=== PATIENT | female | born 1955 | race Caucasian/White ===

== ENCOUNTER 2017-08-15 13:59 | Inpatient (IN) | payer BC, OTHER ==
[~2017-08-15] VITALS: Ht 162.6 cm; Wt 113.4 kg
[2017-08-15 15:19] LABS: *AMPHETAMINE, URINE NEGATIVE (NEGATIVE); *BARBITURATE, URINE POSITIVE (NEGATIVE); *CANNABINOID, URINE NEGATIVE (NEGATIVE); *COCCAINE, URINE NEGATIVE (NEGATIVE); *OPIATE, URINE NEGATIVE (NEGATIVE); *PHENCYCLIDINE SCREEN,URINE NEGATIVE (NEGATIVE)
--- NOTE | 2017-08-15 15:30 | NUR ---
INTAKE ASSESSMENT RECEIVED PT AOX4, STABLE, AND AMBULATORY. PT REPORTS ALLERGIES TO IODINE DYE, ORENCIA, ENBREL, PLAQUENIL, AND LEVAQUIN. VITAL SIGNS STABLE. PT REPORTS NO SEIZURE HISTORY. EXPLAINED MED HANDLING AND DISPOSAL OF NARCOTICS. EXPLAINED UNIT PROTOCOLS AND PT VERBALIZED UNDERSTANDING. WILL ADMIT PT UPON ARRIVAL TO 3RD FLOOR.
[2017-08-15 15:35] VITALS: BP 139/85
[2017-08-15] MEDS ORDERED: METF-495 PO (15:52)
[2017-08-15] MEDS ORDERED: GLIM2TAB2 PO (15:52)
[2017-08-15] MEDS ORDERED: ASPI-612 PO (15:52)
[2017-08-15] MEDS ORDERED: BUPR1FIL3 SL (15:52)
[2017-08-15] MEDS ORDERED: LOPE2CAP PO (15:52)
[2017-08-15] MEDS ORDERED: DULO60CA45 PO (15:52)
[2017-08-15] MEDS ORDERED: HYDR50TA3 PO (15:52)
[2017-08-15] MEDS ORDERED: ATEN50TA PO (15:52)
[2017-08-15] MEDS ORDERED: CYCL5TAB PO (15:52)
[2017-08-15] MEDS ORDERED: MELO-105 PO (15:52)
[2017-08-15] MEDS ORDERED: ESOM20CA PO (15:52)
[2017-08-15] MEDS ORDERED: NEOM15OI3 TP (15:52)
[2017-08-15] MEDS ORDERED: INSU100V7 SQ (15:52)
[2017-08-15] MEDS ORDERED: lidocaine patch TOP (15:52)
[2017-08-15 16:00] VITALS: BP 139/72
--- NOTE | 2017-08-15 16:22 | NUR ---
ADMISSION NOTE VS BP 139/85 HR 83 O2 96% RR 16 TEMP 98.2 HEIGHT 64 INCHES WEIGHT 250 LBS ALLERGIES: IODINE CONTRAST,LEVAQUIN, ENBREL, PLAQUENIL, ORENCIA PATIENT IS A 62 YEAR OLD FEMALE ADMITTED TO [facility] ON 08/15/17 AT 1545. PT IS UNDER THE CARE OF DR AQUINO OF SUBOXONE DEPENDENCE. PT DENIES SUICIDAL OR HOMICIDAL IDEATIONS AT THIS TIME. PT DENIES BEING HOSPITALIZED WITHIN THE LAST 30 DAYS. PT DENIES CHEST PAIN OR SOB. UPON ASSESSMENT, SKIN IS INTACT. COWS 9 UPON ASSESSMENT. AOX4 AND ABLE TO ANSWER NECESSARY QUESTIONS FOR ADMISSION PROCESS. PT IS FULL CODE AND REGULAR DIET. PT DENIES SEIZURE HISTORY. PT DENIES HAVING PCP. BREATHING IS EVEN AND UNLABORED. PT AMBULATES WITH STEADY GAIT. PT STATES BOWEL HABITS ARE NORMAL. PT REPORTS TREATMENT HISTORY 8 YEARS AGO FOR OXYCONTIN AND THAT IS WHEN SHE WAS STARTED ON SUBOXONE. PT REPORTS LIVING ALONE. PT DOES NOT SMOKE CIGARETTES. DR AQUINO HAS BEEN NOTIFIED AND PLACED CLIENT UNDER OBSERVATION. ALL NEEDS MET. ALL SAFETY MEASURES IN PLACE PER HOSPITAL POLICY. PT HAS BEEN ORIENTED TO ROOM, STAFF, AND UNIT. BED IN LOWEST POSITION AND LOCKED. WILL MONITOR CLOSELY AND OFFER HELP. SUBSTANCE ABUSE SUBOXONE 20 MG DAILY FOR 1 WEEK AT THIS RATE, 8 YEARS TOTAL. LAST USED 4 MG ON 08-15-17 PATIENT REPORTS TAKING FIORICET FOR FACIAL PAIN 5 DAYS AGO PRESCRIBED.
--- NOTE | 2017-08-15 18:38 | NUR ---
END OF SHIFT NOTE ADMITTED PATIENT THIS AFTERNOON. PATIENT ADMITTED FOR SUBOXONE DEPENDENCE. VITAL SIGNS STABLE. PATIENT GIVEN 4 MG SUBUTEX ORDERED. LAST COWS 9. PATIENT BEEN RESTING IN ROOM SINCE ADMISSION. ALL NEEDS MET. SAFETY MEASURES IN PLACE. PT DENIES S/I AND H/I. WILL ENDORSE TO NIGHT NURSE.
[2017-08-15 19:23] LABS: BASOPHILS # (AUTO) 0.1 K/uL (0.0-8.0); BASOPHILS % (AUTO) 0.6 % (0.0-2.0); EOSINOPHILS # (AUTO) 0.2 K/uL (0.0-0.7); EOSINOPHILS % (AUTO) 1.6 % (0.0-7.0); HEMATOCRIT 35.6 % (37-47); HEMOGLOBIN 11.5 G/DL (12.0-16.0); LYMPHOCYTES # (AUTO) 2.7 K/UL (0.8-4.8); LYMPHOCYTES % (AUTO) 27.5 % (20.5-51.5); MEAN CORPUSCULAR HEMOGLOBIN 23.3 UUG (27.0-31.0); MEAN CORPUSCULAR HGB CONC 32 g/dL (32.0-37.0); MEAN CORPUSCULAR VOLUME 72.1 FL (81.0-99.0); MONOCYTES # (AUTO) 0.5 K/UL (0.1-1.30); MONOCYTES % (AUTO) 5.4 % (0.0-11.0); NEUTROPHILS # (AUTO) 6.3 K/UL (1.8-8.9); NEUTROPHILS % (AUTO) 64.9 % (38.5-71.5); PLATELET COUNT (AUTO) 360 K/UL (150-450); RED BLOOD CELL COUNT(AUTO) 4.94 MIL/UL (4.2-5.4); WHITE BLOOD COUNT (AUTO) 9.8 K/UL (4.0-11.2)
[2017-08-15 19:34] LABS: ALANINE AMINOTRANSFERASE 18 U/L (14-59); ALKALINE PHOSPHATASE 71 U/L (50-136); ASPARTATE AMINOTRANSFERASE 11 U/L (15-37); BILIRUBIN,TOTAL 0.2 mg/dL (0.2-1.0); CARBON DIOXIDE 32 mmol/L (21-32); CHLORIDE 101 mmol/L (98-107); CREATININE 0.8 mg/dL (0.6-1.3); GLUCOSE 249 mg/dL (74-106); POTASSIUM 3.9 mmol/L (3.5-5.1); UREA NITROGEN, BLOOD 10 mg/dL (7-18)
[2017-08-15 19:35] LABS: MAGNESIUM 1.2 mg/dL (1.8-2.4)
[2017-08-15 19:43] LABS: ETHANOL < 3 MG/DL (0-0)
[2017-08-15 20:00] VITALS: BP 141/52
--- NOTE | 2017-08-15 20:00 | NUR ---
Start of Shift Pt is a 62 year old female admitted for Suboxone dependence, placed on 4 day Subutex taper. Pt reported using Suboxone 20mg/daily. Pt reports allergies to iodine contrast, Levaquin, Enbrel, laquenil and Orencia, fall precautions and full code. PMH: anxiety, depression, DM II, RA, Fibromyalgia, HTN, Sciatica and trigeminal neuralgia. Upon assessment, pt presents with body aches, hot/cold flushing throughout body, body/muscle aches, nasal stuffiness noted, abdominal cramping, respirations even/unlabored, denies SOB/chest pain, medications due. Pt uses own Cpap machine, VTE 2 SCD pumps in use. Safety measures in place, call light within reach, side rails up x2, bed locked and in low position. Will continue to monitor.
--- NOTE | 2017-08-15 20:10 | NUR ---
Accu-Check Blood Sugar 254, Humulin R 6 units administered per sliding scale orders. No s/s of hypo/hyperglycemia, education provided regarding proper diet, safety measures in place, will continue to monitor.
[2017-08-16] VITALS: BP 106/52
--- NOTE | 2017-08-16 | NUR ---
PRN Administration Pt reports pain and aches 5/10 in left shoulder area. Motrin 600mg PRN and Robaxin 750mg PRN administered. Safety measures in place. Will continue to monitor Addendum: 08/16/17 at 0510 by BEST SNOW RN CORRECTION: Pt reports pain and aches 5/10 in RIGHT shoulder area.
--- NOTE | 2017-08-16 01:00 | NUR ---
PRN Reassessment Upon reassessment, pt is sleeping, respirations even/unlabored. Safety measures in place, will continue to monitor
[2017-08-16 04:00] VITALS: BP 140/64
--- NOTE | 2017-08-16 04:00 | NUR ---
Vital Signs BP 140/64, pulse 79, resp 16, SpO2 96% room air, temp 97.8 COWS deferred d/t pt sleeping, to assess while pt is awake as ordered. Safety measures in place, Will continue to monitor
--- NOTE | 2017-08-16 07:03 | NUR ---
End of Shift Pt is a 62 year old female admitted for Suboxone dependence, placed on 4 day Subutex taper. Pt reported using Suboxone 20mg/daily. Pt reports allergies to iodine contrast, Levaquin, Enbrel, laquenil and Orencia, fall precautions and full code. PMH: anxiety, depression, DM II, RA, Fibromyalgia, HTN, Sciatica and trigeminal neuralgia. During shift, pt presented with body aches, hot/cold flushing throughout body, body/muscle aches, nasal stuffiness noted, abdominal cramping scheduled taper medications administered Latest COWS 9. At 1999, Blood Sugar 254, Humulin R 6 units administered per sliding scale orders. No s/s of hypo/hyperglycemia, education provided regarding proper diet. Motrin 600mg PRN and Robaxin 750mg PRN administered for pain and muscle aches in right shoulder area. Pt uses own Cpap machine, VTE 2 SCD pump in use. Pt slept for 8 hours, intake of 1035ml PO, voids x2 and stool x0. Safety measures in place, call light within reach, side rails up x2, bed locked and in low position. Endorsed to day shift nurse.
[2017-08-16 08:02] VITALS: BP 118/68
[2017-08-16 08:32] LABS: BILIRUBIN,TOTAL 0.3 mg/dL (0.2-1.0); CREATININE 0.8 mg/dL (0.6-1.3); MAGNESIUM 1.6 mg/dL (1.8-2.4)
--- NOTE | 2017-08-16 08:57 | NUR ---
START OF SHIFT NOTE RECEIVED PT THIS AM AOX4. PT AWAKE IN BED AND REPORTS NOT FEELING WELL. SHE WAS GIVEN PRN MOTRIN AND ROBAXIN DURING SWORD SWALLOWER. PT IS ON 4 DAY SUBUTEX TAPER.PT REFUSED TB TEST THIS MORNING AND NOTIFIED MD. ENCOURAGED PT TO NOTIFY RN IF S/S OF W/D WORSEN. ENCOURAGED PT TO INCREASE FLUID INTAKE. WILL MONITOR.
--- NOTE | 2017-08-16 09:00 | NUR ---
pt refused TB test. notified
[2017-08-16 11:54] LABS: *BILIRUBIN,URIN NEGATIVE (NEGATIVE); *BLOOD, URINE NEGATIVE (NEGATIVE); *CLARITY,URINE SLIGHTLY CLOUDY (CLEAR); *COLOR,URINE YELLOW (YELLOW); *KETONES,URINE NEGATIVE (NEGATIVE); *PROTEIN,URINE NEGATIVE (NEGATIVE); *UROBILINOGEN,URINE 0.2 E.U./dl (NORMAL); LEUKOCYTE ESTERASE ,URINE 1+ (NEGATIVE); NITRITE, URINE NEGATIVE (NEGATIVE); PH,URINE 5.5 (5.0-8.0); UGLUCOSE NEGATIVE (NEGATIVE)
[2017-08-16 12:00] VITALS: BP 149/56
[2017-08-16 12:12] LABS: BACTERIA,URINE MODERATE /HPF (NONE SEEN); RBC,URINE 0-3 /HPF (0-3); WBC,URINE 50-80 /HPF (0-3)
[2017-08-16 12:13] LABS: MUCUS,URINE FEW /LPF (0-FEW); SQUAMOUS EPITHELIAL CELL,UR MANY /HPF (NONE SEEN)
--- NOTE | 2017-08-16 14:15 | NUR ---
PRN MEDICATION PATIENT GIVEN IMODIUM FOR FIRST BOUT OF DIARRHEA. WILL ASSESS EFFECTIVENESS.
[2017-08-16 16:00] VITALS: BP 141/66
--- NOTE | 2017-08-16 16:15 | NUR ---
PRN REASSESSMENT PT SLEEPING SOUNDLY IN BED WITH RR EVEN AND UNLABORED. CALL GONZALEZ WITHIN REACH. BED LOCKED AND IN LOWEST POSITION. WILL MONITOR.
--- NOTE | 2017-08-16 18:32 | NUR ---
END OF SHIFT NOTE PT CONTINUED ON 4 DAY SUBUTEX TAPER AND TOLERATING WELL. PRN IMODIUM GIVEN FOR C/O DIARRHEA DURING SHIFT WITH EFFECTIVENESS. PT CONTINUED WITH ACCUCHEK AC HS DURING SHIFT AND COVERED WITH HUMULIN NEEDED. LAST BLOOD SUGAR WAS 222 AND COVERED WITH 6 UNITS. LAST COWS 9. VITAL SIGNS STABLE. ALL NEEDS MET. ALL SAFETY MEASURES IN PLACE. WILL ENDORSE TO NIGHT NURSE.
[2017-08-16 20:00] VITALS: BP 157/71
--- NOTE | 2017-08-16 20:00 | NUR ---
START OF SHIFT Pt is a 62 y/o female admitted on 08/15/17 for opiate dependence. Pt was dependent on Suboxone 20 mg/daily for 8 yrs. Pt is full code, regular diet, fall precautions, allergic to IV dye, abatacept, etanercept, hydroxychloroquine, levofloxacin. Pt reports PMH of type 2 diabetes, RA, fibromyalgia, HTN, sciatica, trigeminal neuralgia, anxiety, and depression. Pt is on a 4 day Subutex taper that started on 08/15/17, tolerating well. Upon assessment, pt is laying in bed complaining of mild generalized aches, discomforts r/t sciatica and fibromyalgia. Complains of pain in left shoulder and left hip. Pt also reports mild stomach cramps and anxiety. Pt has resolved diarrhea as of today after PRN Imodium given during day shift. Respirations 16, even and unlabored. Denies N/V/D. Denies chest pain or SOB. Medications due. Safety measures in place. Call light within reach. Will continue to monitor. Addendum: 08/16/17 at 2236 by MAGUE SERRANO RN Pt uses own Cpap machine, VTE 2 SCD pumps in use.
--- NOTE | 2017-08-16 20:20 | NUR ---
Accu-Check Blood Sugar 156, Humulin R 2 units administered per sliding scale orders. No s/s of hypo/hyperglycemia, education provided regarding proper diet, safety measures in place, will continue to monitor.
--- NOTE | 2017-08-16 20:24 | NUR ---
PRN CLONIDINE Pt given PRN Clonidine for BP 157/71 and for w/d S/S such as mild sweats, mild aches, and anxiety. COWS 5. Respirations 16, even and unlabored. Safety measures in place. Call light within reach. Will continue to monitor.
--- NOTE | 2017-08-16 21:24 | NUR ---
PRN CLONIDINE REASSESSMENT BP went from 157/71 to 125/61. COWS was 5 and lowered to a 3. Pt reports improvement in S/S of withdrawal. Safety measures in place. Call light within reach. Will continue to monitor.
--- NOTE | 2017-08-16 21:44 | NUR ---
ROSANNA LORENZO Pt reports heartburn. Respirations are 16, even and unlabored. Safety measures in place. Call light within reach. Will continue to monitor.
--- NOTE | 2017-08-16 22:21 | NUR ---
PRN ROBAXIN PRN Robaxin given for generalized mild aches. Respirations 16, even and unlabored. Safety measures in place. Call light within reach. Will continue to monitor.
--- NOTE | 2017-08-16 22:44 | NUR ---
PRN MAALOX REASSESSMENT Pt reports improvement of heartburn symptoms. Safety measures in place. Call light within reach. Will continue to monitor.
--- NOTE | 2017-08-16 23:21 | NUR ---
ROSANNA LAMB REASSESSMENT Pt reports improvement in generalized body aches. Safety measures in place. Call light within reach. Will continue to monitor.
--- NOTE | 2017-08-16 23:54 | NUR ---
PRN Motrin Pt reports headache rated 5-6/10. Motrin 600mg PRN administered. Safety measures in place, will continue to monitor
[2017-08-17] VITALS: BP 138/62
--- NOTE | 2017-08-17 00:54 | NUR ---
PRN Motrin Reassessment Upon reassessment, pt is in bed, sleeping, respirations even/unlabored, no reports of discomfort. Safety measures in place, will continue to monitor,
[2017-08-17 04:00] VITALS: BP 137/60
--- NOTE | 2017-08-17 04:00 | NUR ---
VITAL SIGNS BP 137/60, P 73, R 16, 02 98%, T 98.1, PA 0 COW deferred. Pt is sleeping, to be assessed while pt is awake as ordered. Safety measures in place. Will continue to monitor.
--- NOTE | 2017-08-17 07:12 | NUR ---
END OF SHIFT Pt is a 62 y/o female admitted on 08/15/17 for opiate dependence. Pt was dependent on Suboxone 20 mg/daily for 8 yrs. Pt is full code, regular diet, fall precautions, allergic to IV dye, abatacept, etanercept, hydroxychloroquine, levofloxacin. Pt reports PMH of type 2 diabetes, RA, fibromyalgia, HTN, sciatica, trigeminal neuralgia, anxiety, and depression. Pt uses own Cpap machine, VTE 2 SCD pumps in use. Pt is on a 4 day Subutex taper that started on 08/15/17, tolerating well. Pt complained of mild generalized aches and mild shoulder and hip pains. Scheduled medications and PRN clonidine, maalox, robaxin, and motrin administered during shift, effective in management of S/S of withdrawal as verbalized by pt. Last COW 5 at 0000. BS 156, covered with Humulin R 2 units per sliding scale orders. No S/S of hypo/hyperglycemia noted. Pt slept 6 hours. Intake 902 ml, void x 3, stool x 0. Safety measures in place. Call light within reach. Pt needs have been met. Endorsed to day shift nurse.
--- NOTE | 2017-08-17 07:13 | NUR ---
Start of Shift Notes: Received patient in her room. Awake, alert and oriented x 4. Verbally responsive. Able to make her needs known. Respirations even and unlabored. No SOB noted. Skin warm and dry to touch. Abdomen soft and non-distended with (+) BS in all 4 quadrants. No complains of V/D or constipation noted. However, complains of nausea. Patient states "I feel nauseated." Bladder non-distended. No complains of dysuria noted. Voids independently. Ambulatory ad luis felipe with steady gait. Patient is a 62 year old female admitted for opiate dependence who was placed on a 4-day Subutex taper as ordered. Prior to admission, patient was using 20 mg of Subutex SL daily x 8 years. Has past medical hx of anxiety, depression, type 2 diabetes, RA, fibromyalgia, HTN, sciatica. FULL CODE. Regular diet. On fall and seizure precautions. Educated patient on her current plan of care for the day and her medication regimen. Encouraged oral fluid intake and encouraged group participation to learn new skills to prevent relapse. Will continue to monitor closely.
--- NOTE | 2017-08-17 07:30 | NUR ---
BS check: Accucheck done. BS 88. No s/s of hypolgycemia noted.
--- NOTE | 2017-08-17 07:43 | NUR ---
PRN Zofran 4 mg ODT: Patient given Zofran 4 mg ODT for nausea. Will monitor for effectiveness.
[2017-08-17 08:00] VITALS: BP 139/62
[2017-08-17 08:06] LABS: HEPATITIS B SURFACE AG Negative (Negative)
--- NOTE | 2017-08-17 08:43 | NUR ---
Re-assessment: Per patient, PRN Zofran was effective in reducing nausea. Patient consumed 75% of breakfast. All due meds given.
--- NOTE | 2017-08-17 09:30 | NUR ---
MD Communication: Spoke with Dr. Rosa over the phone and notified of patient's BS at 0730 which was 88. Patient was given her Metformin 1000 mg and Amaryl 2 mg PO with meals and patient consumed 75% of her breakfast along with snacks. Patient shows no s/s of hypoglycemia noted. Per MD, OK to hold Lantus 96Units at this time. Notified patient and education provided. Will continue to monitor.
--- NOTE | 2017-08-17 11:33 | NUR ---
Motrin 400 mg PO given: Patient noted with complain of 5/10 headache. Medicated patient with Motrin 400 mg PO as ordered. Will monitor for effectiveness.
[2017-08-17 12:00] VITALS: BP 127/65
[2017-08-17] MEDS ORDERED: BUTA1CAP46 PO (12:17)
--- NOTE | 2017-08-17 12:18 | NUR ---
Additional usage history: Patient reports using Fioricet 2 tabs PO TID PRN for migraines at home. Patient states that she takes this as prescribed.
--- NOTE | 2017-08-17 12:33 | NUR ---
Re-assessment: Motrin Per patient, PRN Motrin was effective in reducing patient's headache. PL 01/06.
--- NOTE | 2017-08-17 14:20 | NUR ---
MD Communication: Dietary Consult Highway Maintenance Crew Worker came in the unit and educated patient on DM. Highway Maintenance Crew Worker recommends for patient to haver her HgbA1c checked. Notified MD Rosa. Per MD, he will enter in orders.
--- NOTE | 2017-08-17 15:19 | NUR ---
Therapist prompted client to attend daily group therapy sessions. Client stated that she would attend if she was feeling well enough to do so.
--- NOTE | 2017-08-17 15:23 | NUR ---
Lotensin at 1500 not administered: Lotensin 1500 not administered per MD's orders. Notified MD that patient's blood pressure is 100/45 at rest. Per MD, hold dose at this time. Orders noted and carried out.
[2017-08-17 16:00] VITALS: BP 101/45
--- NOTE | 2017-08-17 17:59 | NUR ---
Atenolol at 1700 not administered: Patient's blood pressure 101/45. Denies headache, dizziness or lightheadedness. Patient also refuse to take med. Atenolol at 1700 held at this time.
--- NOTE | 2017-08-17 18:52 | NUR ---
End of Shift Notes: Patient continues to be on 4-day Subutex taper as ordered. No adverse reactions noted. Tolerating taper well. VS monitored closely. No significant abnormalities noted. Withdrawal symptoms were closely monitored. Initial COWS 9, patient presented with anxiety, agitation, restlessness, agitation. Chills, hot flashes, nasal stuffiness and muscle aches. Last COWS 5. Per patient Subutex has been helping her reduce her withdrawal symptoms. BS monitored closely qAC. Held Lantus 96U at 0900 per MD. No s/s of hypo/hyperglycemia noted. Requires encouragement to attend group and activities. PRN Zofran given at 0743 for nausea with help after 1 hour. Motrin 400 mg PO given at 1133 for headache with help after 1 hour. Compliant with care and treatment. All needs met and attended. Will continue to monitor closely.
[2017-08-17 20:00] VITALS: BP 128/65
--- NOTE | 2017-08-17 20:00 | NUR ---
Start of Shift Pt is a 62 year old female admitted for Suboxone dependence, placed on 4 day Subutex taper. Pt reported using Suboxone 20mg/daily. Pt reports allergies to iodine contrast, Levaquin, Enbrel, laquenil and Orencia, fall precautions and full code. PMH: anxiety, depression, DM II, RA, Fibromyalgia, HTN, Sciatica and trigeminal neuralgia. Upon assessment, pt presents with muscle aches in lower back, abdominal cramping, skin noted to be flushed, respirations even/unlabored, denies SOB/chest pain, medications due. Pt uses own Cpap machine, VTE 2 SCD pumps in use. Safety measures in place, call light within reach, side rails up x2, bed locked and in low position. Will continue to monitor.
--- NOTE | 2017-08-17 21:30 | NUR ---
Accu-Check/ Insulin Administration Blood Sugar 221, Scheduled Lantus 40units administered, also covered with Humulin R 4 units per sliding scale orders. No s/s of hypo/hyperglycemia, education provided regarding proper diet, safety measures in place, will continue to monitor.
[2017-08-18] VITALS: BP 138/54
[2017-08-18 04:00] VITALS: BP 118/52
--- NOTE | 2017-08-18 04:00 | NUR ---
Vital Signs BP 118/52, pulse 78, resp 18, SpO2 96% room air, temp 97.6 COWS deferred d/t pt sleeping, to assess while pt is awake as ordered. Safety measures in place, Will continue to monitor
--- NOTE | 2017-08-18 07:00 | NUR ---
End of Shift Pt is a 62 year old female admitted for Suboxone dependence, placed on 4 day Subutex taper. Pt reported using Suboxone 20mg/daily. Pt reports allergies to iodine contrast, Levaquin, Enbrel, laquenil and Orencia, fall precautions and full code. PMH: anxiety, depression, DM II, RA, Fibromyalgia, HTN, Sciatica and trigeminal neuralgia. During shift, pt presented with muscle aches in lower back, abdominal cramping, skin noted to be flushed scheduled taper medications administered, effective in management of s/s of withdrawal as evidenced by COWS 6 decreased to COWS 5. During shift, Blood Sugar 221, Scheduled Lantus 40units administered, also covered with Humulin R 4 units per sliding scale orders. No s/s of hypo/hyperglycemia, education provided regarding proper diet. No PRN medications administered during shift. Pt slept for 6 hours, intake of 500 ml PO, voids x3 and stool x0. Pt uses own Cpap machine, SCD pumps in use. Safety measures in place, call light within reach, side rails up x2, bed locked and in low position. Endorsed to day shift nurse.
--- NOTE | 2017-08-18 07:01 | NUR ---
Start of Shift Notes: Received patient in her room. Awake, alert and oriented x 4. Verbally responsive. Able to make her needs known. Respirations even and unlabored. No SOB noted. Skin warm and dry to touch. Abdomen soft and non-distended with (+) BS in all 4 quadrants. No complains of V/D or constipation noted. Patient states "I feel nauseated." Bladder non-distended. No complains of dysuria noted. Voids independently. Ambulatory ad luis felipe with steady gait. Patient is a 62 year old female admitted for opiate dependence who was placed on a 4-day Subutex taper as ordered. Prior to admission, patient was using 20 mg of Subutex SL daily x 8 years. Has past medical hx of anxiety, depression, type 2 diabetes, RA, fibromyalgia, HTN, sciatica. FULL CODE. Regular diet. On fall and seizure precautions. Educated patient on her current plan of care for the day and her medication regimen. Encouraged oral fluid intake and encouraged group participation to learn new skills to prevent relapse. Will continue to monitor closely.
[2017-08-18 08:00] VITALS: BP 126/64
[2017-08-18 08:00] LABS: CREATININE 0.9 mg/dL (0.6-1.3); MAGNESIUM 1.6 mg/dL (1.8-2.4); POTASSIUM 4.3 mmol/L (3.5-5.1)
--- NOTE | 2017-08-18 08:08 | NUR ---
Zofran 4mg SL given: PRN Zofran 4mg SL given at this time due to complain of nausea. No emesis noted. Will continue to monitor for effectiveness.
--- NOTE | 2017-08-18 08:11 | NUR ---
Insulin Administration: BS at 0735 was 155mg/dl. Administered 2U of RI per SS coverage and Lantus 40U as ordered. Patient consumed 100% of breakfast.
--- NOTE | 2017-08-18 09:08 | NUR ---
Re-assessment: Zofran 4mg SL Patient states that PRN Zofran was effective in relieving nausea.
--- NOTE | 2017-08-18 09:17 | NUR ---
Lidocaine patch not administered: Patient refused Lidocaine patch at this time. Educated patient on the risk and benefits patient still refused. Patient prefers medication to be given at HS. Will notify MD Rosa.
--- NOTE | 2017-08-18 10:44 | NUR ---
MD Communication: Notified MD Rosa of patient's VTE score of 4 and requested for Lidocaine patch to be administered at HS. Per MD, patient does not need chemical prophylaxis at this time since patient is ambulatory and will enter in new orders for Lidocaine patch.
--- NOTE | 2017-08-18 11:56 | NUR ---
Insulin Administration: Patient's blood sugar 139mg/dl. Administered 2U of RI per SS. Tolerated well.
[2017-08-18 12:00] VITALS: BP 122/61
--- NOTE | 2017-08-18 13:27 | NUR ---
Clonidine 0.1mg PO given: patient noted with complains of anxiety, agitation, and chills. Encouraged patient to verbalize her feelings and concerns but did not help. Medicated patient with Clonidine 0.1mg Po as ordered. BP 122/61.
--- NOTE | 2017-08-18 14:27 | NUR ---
Re-assessment: Clonidine Per patient, PRN Clondine was effective in reducing anxiety, chills and agitation.
[2017-08-18 16:00] VITALS: BP 126/71
--- NOTE | 2017-08-18 16:05 | NUR ---
Vistaril 50 mg PO given: Patient noted with anxiety. Reassurance provided but did not help. BP 122/61, Pulse 71. Medicated patient with Vistaril 50 mg PO as ordered. Will monitor for effectiveness.
--- NOTE | 2017-08-18 16:20 | NUR ---
MD communication Per lab, Accu check was inaccurate. Dr Rosa ordered 1x order for accu check, then to administer insulin per ordered sliding scale. unable to enter orders at this time.
--- NOTE | 2017-08-18 16:39 | NUR ---
OT Subutex 2 mg SL/Ativan 1 mg PO given: Patient noted with COWS 9 - presented with severe anxiety, restless legs, stomach cramps and mild agitation. Notified MD and ordered for patient to have OT dose of Ativan 1 mg for anxiety and Subutex 2 mg SL as ordered. Will monitor for effectiveness.
--- NOTE | 2017-08-18 17:09 | NUR ---
Re-assessment: Subutex COWS 4, less anxiety noted and less myalgia. PRN Subutex was effective in reducing patient's withdrawal symptoms.
--- NOTE | 2017-08-18 17:32 | NUR ---
Insulin Administration: Patient's blood sugar 267mg/dl. Administered 9U of RI per SS. Patient tolerated well.
--- NOTE | 2017-08-18 17:39 | NUR ---
Re-assessment: Ativan Per patient, PRN Ativan was effective in reducing anxiety.
--- NOTE | 2017-08-18 18:53 | NUR ---
End of Shift Notes: Patient continues to be on 4-day Subutex taper as ordered. No adverse reactions noted. Tolerating taper well. VS monitored closely. No significant abnormalities noted. Withdrawal symptoms were closely monitored. Initial COWS 7, patient presented with anxiety, agitation, restlessness, agitation. Chills, hot flashes, nasal stuffiness and muscle aches. Last COWS 4. Per patient Subutex has been helping her reduce her withdrawal symptoms. BS monitored closely qAC. Covered with RI coverage per SS. No s/s of hypo/hyperglycemia noted. Requires encouragement to attend group and activities. PRN Zofran given at 0808 for nausea with help after 1 hour. Clonidine 0.1mg PO given at 1327 for anxiety, chlls with help after 1 hour. Vistaril 50 mg PO given at 1605 for anxiety with mild help. OT Ativan 1 mg and Subutex 4 mg SL given at 1630 for anxiety and for COWS 9 with help after 1 hour. Compliant with care and treatment. All needs met and attended. Will continue to monitor closely.
--- NOTE | 2017-08-18 19:10 | NUR ---
Start of shift note Received report from day shift nurse. Pt is a62 yo female, A+Ox4, presenting to [facility] for Opiate dependence. Pt has Allergies to Iodine contrast, Abatacept, Etanercept, and Levoflaxicin, is on Full Code status, and on Regular diet. Pt has HX of Anxiety, Depression, DM II, RA, Fibromyalgia, HTN, Sciatica, and Trigeminal neuralgia. Pt is on 4 day Subutex taper, tolerated well. No s/s of distress noted at this time. Respirations even and unlabored. Will continue to monitor.
[2017-08-18 20:00] VITALS: BP 115/50
[2017-08-19 00:10] VITALS: BP 118/42
--- NOTE | 2017-08-19 00:10 | NUR ---
COWS DEFERRED Cows deferred, patient is asleep. Patient's breathing is even and unlabored, will continue to monitor.
[2017-08-19 04:04] VITALS: BP 113/41
--- NOTE | 2017-08-19 06:49 | NUR ---
End of shift note Pt is a 62 yo female, A+Ox4, presenting to [facility] for Opiate dependence. Pt has Allergies to Iodine contrast, Abatacept, Etanercept, and Levoflaxicin, is on Full Code status, and on Regular diet. Pt is on Fall precautions. Pt has HX of Anxiety, Depression, DM II, RA, Fibromyalgia, HTN, Sciatica, and Trigeminal neuralgia. Pt is on 4 day Subutex taper, tolerated well. Pt slept for a total of 9 HRS. Last COWS: 3 @0400. No s/s of distress noted at this time. Respirations even and unlabored. Will endorse to day shift nurse.
[2017-08-19 08:00] VITALS: BP 132/62
[2017-08-19 12:00] VITALS: BP 90/32
--- NOTE | 2017-08-19 12:23 | NUR ---
Communication: Patient's blood pressure 90/32, Pulse 54 while at rest. Patient is complaining of dizziness while standing. Denies any chest pain or discomfort. Patient also appears sedated. Notified MD Rosa. Per , ok to hold Gabapentin and Baclofen at 1500 and will adjust patient's blood pressure medications. Addendum: 08/19/17 at 1225 by NEERU ROGEL LVN Amended: Links added. Addendum: 08/19/17 at 1226 by NEERU ROGEL LVN Add'l notes: Patient was encouraged to increase oral fluid intake. Elevated foot of the bed. Safety precautions in place. Encouraged patient to use call light for assistance. Will monitor closely.
--- NOTE | 2017-08-19 14:59 | NUR ---
Gabapentin at 1500 not administered: Patient complained of dizziness. MD aware. Per MD, OK to hold Gabapentin at this time. Will continue to monitor.
[2017-08-19 16:00] VITALS: BP 115/47
--- NOTE | 2017-08-19 18:54 | NUR ---
End of Shift Notes: Patient continues to be on 4-day Subutex taper as ordered. No adverse reactions noted. Tolerating taper well. VS monitored closely. Noted with episodes of decreased blood pressure. MD aware and adjusted patient's medications and held patient's 1500 Baclofen and Gabapentin. Withdrawal symptoms were closely monitored. Initial COWS 5, patient presented with chills, hot flashes, myalgia and anxiety. Last COWS 2. Per patient Subutex has been helping her reduce her withdrawal symptoms. BS monitored closely qAC covered with RI coverage per SS. No s/s of hypo/hyperglycemia noted. Requires encouragement to attend group and activities. Compliant with care and treatment. All needs met and attended. Will continue to monitor closely.
--- NOTE | 2017-08-19 19:15 | NUR ---
START OF SHIFT NOTE : Pt. is 62 years old female admitted to [facility] on 08/15/2017 for opiates dependency.Patient continues to be on 4-day Subutex taper as ordered. No adverse reactions noted. Tolerating taper well. VS monitored closely. Noted with episodes of decreased blood pressure. MD aware and adjusted patient's medications and held patient's 1500 Baclofen and Gabapentin. Withdrawal symptoms were closely monitored, Last COWS 2. Per patient Subutex has been helping her reduce her withdrawal symptoms. BS monitored closely qAC/HS covered with RI coverage per SS. Compliant with care and treatment. All needs met and attended. Will continue to monitor closely. Safety measures in place : bed on lowest position with side rails x2 up for safety, call light within reach. Will continue to monitor closely and offer help.
[2017-08-19] MEDS ORDERED: Insulin Glargine,Hum SQ (19:58)
[2017-08-19] MEDS ORDERED: GABA-534 PO (19:58)
[2017-08-19] MEDS ORDERED: DICY20TA28 PO (19:58)
[2017-08-19] MEDS ORDERED: ASCO250T5 PO (19:58)
[2017-08-19] MEDS ORDERED: METF-495 PO (19:58)
[2017-08-19] MEDS ORDERED: HYDR-3895 PO (19:58)
[2017-08-19] MEDS ORDERED: BACL10TA PO (19:58)
[2017-08-19] MEDS ORDERED: LIDO30AD10 TD (19:58)
[2017-08-19] MEDS ORDERED: GLIM2TAB2 PO (19:58)
[2017-08-19] MEDS ORDERED: FERR325T28 PO (19:58)
[2017-08-19] MEDS ORDERED: BENA10TA2 PO (19:58)
[2017-08-19] MEDS ORDERED: NAPR500T3 PO (19:58)
[2017-08-19] MEDS ORDERED: DIPH50CA37 PO (19:58)
[2017-08-19 20:00] VITALS: BP 138/49
--- NOTE | 2017-08-20 06:32 | NUR ---
END OF SHIFT NOTE : Pt. is 62 years old female admitted to [facility] on 08/15/2017 for opiates dependency.Patient continues to be on 4-day Subutex taper as ordered. No adverse reactions noted. Tolerating taper well. VS monitored closely. Noted with episodes of decreased blood pressure. MD aware and adjusted patient's medications and held patient's 1500 Baclofen and Gabapentin. Withdrawal symptoms were closely monitored, Pt remains compliant with the treatment plan. PRN Insulin R 4 Units SQ given during my shift, WT=137 at 21:00. V/S remain WNL. RR=16, even and unlabored, lungs clear upon auscultation, abdomen soft and non- distended. Pt denies nausea, vomiting and diarrhea. LAST COWS= 2 at 0400 , MVICFB=2031 ml, voided x1 , slept 2 hours. Safety measures in place : bed on lowest position with side rails x2 up for safety, call light within reach. Will continue to monitor closely and offer help.
--- NOTE | 2017-08-20 07:00 | NUR ---
PRN ZOFRAN Pt. complains of nausea. PRN Zofran given as ordered.
--- NOTE | 2017-08-20 07:30 | NUR ---
START OF SHIFT NOTE Received report from night nurse, 62 year old female admitted for Suboxone dependence, placed on 4 day Subutex taper. Pt reported using Suboxone 20mg/daily. Pt reported PMH: anxiety, depression, DM II, RA, Fibromyalgia, HTN, Sciatica and trigeminal neuralgia. Upon assessment, pt presents with muscle aches in lower back, abdominal cramping, skin noted to be flushed, respirations even/unlabored, denies SOB/chest pain, medications due. Pt uses own Cpap machine, VTE 2 SCD pumps in use. Per night nurse pt was given PRN Zofran, slept for 2 hours, Last COWS-2. Pt received in bed awake, alert and oriented x4, no s/s of hypo/ hyperglycemia noted, Skin intact warm and dry to touch. Pt educated regarding plan of care for the day with good verbal understanding. Safety measures in place, call light kept with in reach, will continue to monitor.
[2017-08-20 08:00] VITALS: BP 146/72
--- NOTE | 2017-08-20 08:00 | NUR ---
ZOFRAN REASSESSMENT Pt reported PRN Zofran was effective nausea subside.
--- NOTE | 2017-08-20 08:23 | NUR ---
BLOOD SUGAR RESULT Pt's noted with BS 185, Pt was given 3 unit of regular insulin as ordered.
[2017-08-20 12:00] VITALS: BP 142/80
--- NOTE | 2017-08-20 12:22 | NUR ---
BLOOD SUGAR RESULT Pt's noted with BS 242, Pt was given 6 unit of regular insulin as ordered.
[2017-08-20] MEDS ORDERED: BENA20TA2 PO (13:57)
[2017-08-20] MEDS ORDERED: ATEN25TA PO (13:57)
[2017-08-20 16:00] VITALS: BP 134/52
--- NOTE | 2017-08-20 16:54 | NUR ---
BLOOD SUGAR RESULT Pt's noted with BS 164 Pt was given 3 unit of regular insulin as ordered.
--- NOTE | 2017-08-20 19:15 | NUR ---
START OF SHIFT NOTE : Pt. is 62 years old female admitted to [facility] on 08/15/2017 for opiates dependency.Patient continues to be on 4-day Subutex taper as ordered. No adverse reactions noted. Tolerating taper well. VS monitored closely, Last COWS=9 at 16:00. Per patient Subutex has been helping her reduce her withdrawal symptoms. BS monitored closely qAC/HS covered with RI coverage per SS. Last DX=218 at 16:00. Compliant with care and treatment. All needs met and attended. Will continue to monitor closely. Safety measures in place : bed on lowest position with side rails x2 up for safety, call light within reach. Will continue to monitor closely and offer help.
--- NOTE | 2017-08-20 19:23 | NUR ---
END OF SHIFT NOTE Pt completed her Subutex taper tolerated well. Pt refused her Aspirin/Benazepril offered x3 risk and benefits explained, pt verbalized understanding. Pt were not given any PRN'S during shift. Pt cont on blood sugar monitoring no s/s of hypo/hyperglycemia noted. Vital signs remained WNL. Pt set for discharge in AM. All needs attended. Pt endorsed to night nurse in stable condition.
[2017-08-20 20:00] VITALS: BP 141/85
--- NOTE | 2017-08-21 06:33 | NUR ---
START OF SHIFT NOTE : Pt. is 62 years old female admitted to [facility] on 08/15/2017 for opiates dependency. Patient continues to be on 4-day Subutex taper as ordered. No adverse reactions noted. Tolerating taper well. VS monitored closely, Last COWS=9 at 16:00. Per patient Subutex has been helping her reduce her withdrawal symptoms. BS monitored closely qAC/HS covered with RI coverage per SS. Lantus SQ only 33 units given in HS because medication is not available in the hospital. Pt remains compliant with the treatment plan. No PRNs were given during my shift. V/S remain WNL. RR=16, even and unlabored, lungs clear upon auscultation, abdomen soft and non- distended. Pt denies nausea, vomiting and diarrhea. LAST COWS=1 at 0400 , INTAKE= 1833 ml, voided x 4, slept 7 hours. Safety measures in place : bed on lowest position with side rails x2 up for safety, call light within reach. Will continue to monitor closely and offer help.
--- NOTE | 2017-08-21 07:24 | NUR ---
BEGINNING OF SHIFT Patient is a 62 year old Female, with admitting Dx: OPIATE Dependence. Patient with past medical history of: Anxiety, depression, type two diabetes, RA, fibromyalgia, HTN, sciatica, and trigeminal neuralgia, Patient received no PRNs during terrazzo supervisor. Patient skin is intact. Per terrazzo supervisor patient slept for 7 hours, Patient with last cow score of: 1. Patient completed detox taper, and is scheduled to be discharged today. Patient received in bed awake, alert and oriented x4, educated patient regarding plan of care for the day and medication regimen with good verbal understanding. Safety measures in place. call light kept with in reach, will continue to monitor closely.
[2017-08-21 08:19] VITALS: BP 136/62
--- NOTE | 2017-08-21 10:56 | NUR ---
PRN TORADOL Patient c/o pain 8/10 in bilateral hands, provided with non pharmacological interventions with no relief, administered Toradol injection as ordered, will monitor effectiveness of medication.
--- NOTE | 2017-08-21 11:56 | NUR ---
TORADOL REASSESSMENT Patient reports medication effective one hour post administration. patients current pain level 0/10, will continue to monitor closely.
[2017-08-21 13:02] VITALS: BP 125/62
[2017-08-21 17:00] VITALS: BP 138/53
--- NOTE | 2017-08-21 18:54 | NUR ---
END OF SHIFT Patient alert and oriented x4, patient compliant with therapeutic plan of care. Vital signs were stable during shift. Patient is scheduled to be discharged tomorrow morning. Patient completed Subutex taper as ordered, no s/sx of withdrawal, patient with last cow score of: 0. 0900 assessment patient presented with: mild bone and joint aches, and mild anxiety with cow score of: 2; 1300 assessment patient presented with: mild anxiety with cow score of: 1; 1700 assessment patient presented with: cow score of: 0. Blood glucose monitored as ordered, with insulin administered as per sliding scale. Patient was administered PRN: Toradol injection as ordered during shift, medication effective one hour post administration. Patient was encouraged to increase PO fluid intake as tolerated. Patient denies SI/HI. MD is aware of patients current status, continues under close observation. Patient endorsed to material handler 2nd shift nurse, all pertinent information discussed.
[2017-08-21 20:00] VITALS: BP 140/52
--- NOTE | 2017-08-21 20:00 | NUR ---
START OF SHIFT NOTE RECEIVED REPORT FROM DAY SHIFT NURSE. PATIENT IS A 62 YEAR OLD YEAR OLD FEMALE, ADMITTED FOR OPIOID DEPENDENCE. PATIENT COMPLETED THE SUBUTEX TAPER, TOLERATED WELL AND NO ADVERSE REACTION. PATIENT IS MEDICALLY CLEARED TO BE DISCHARGE TOMORROW. SKIN INTACT. PATIENT WAS GIVEN PRN TORADOL IM . LAST COWS 0. PATIENT IN HER ROOM, ALERT AND ORIENTED X 4. RESPIRATION EVEN AND UNLABORED. DENIES ANY PAIN. NO N/V. SAFETY MEASURES IN PLACE. CALL LIGHT IN REACH. WILL CONTINUE TO MONITOR
--- NOTE | 2017-08-22 | NUR ---
COWS/VS PATIENT SLEEPING . VS REFUSED. COWS DEFERRED. RESPIRATION EVEN AND UNLABORED. SAFETY MEASURES IN PLACE. CALL LIGHT IN REACH. WILL CONTINUE TO MONITOR.
--- NOTE | 2017-08-22 04:00 | NUR ---
COWS/VS PATIENT SLEEPING . VS REFUSED. COWS DEFERRED. RESPIRATION EVEN AND UNLABORED. SAFETY MEASURES IN PLACE. CALL LIGHT IN REACH. WILL CONTINUE TO MONITOR.
--- NOTE | 2017-08-22 06:52 | NUR ---
PRN TORADOL IM ADMINISTRATION PATIENT C/O PAIN 8/10 ON BOTH HIP. PRN TORADOL IM GIVEN. WILL MONITOR FOR EFFECTIVENESS
--- NOTE | 2017-08-22 07:17 | NUR ---
PATIENT COMPLETED THE SUBUTEX TAPER, TOLERATED WELL AND NO ADVERSE REACTION. PATIENT IS MEDICALLY CLEARED TO BE DISCHARGE TODAY. SKIN INTACT. PATIENT REMAIN ALERT AND ORIENTED X 4. RESPIRATION EVEN AND UNLABORED. DENIES ANY PAIN. NO N/V DURING SHIFT. PATIENT WAS GIVEN PRN TORADOL IM . SAFETY MEASURES IN PLACE. CALL LIGHT IN REACH. WILL CONTINUE TO MONITOR. SLEPT 7 HOURS. FLUID INTAKE 1,000 ML . VOIDED X 3 . BM. LAST COWS 1 . Addendum: 08/22/17 at 0718 by AMY DAI LVN END OF SHIFT NOTE (DUPLICATE)
--- NOTE | 2017-08-22 07:17 | NUR ---
END OF SHIFT NOTE PATIENT COMPLETED THE SUBUTEX TAPER, TOLERATED WELL AND NO ADVERSE REACTION. PATIENT IS MEDICALLY CLEARED TO BE DISCHARGE TODAY. SKIN INTACT. PATIENT REMAIN ALERT AND ORIENTED X 4. RESPIRATION EVEN AND UNLABORED. DENIES ANY PAIN. NO N/V DURING SHIFT. PATIENT WAS GIVEN PRN TORADOL IM . SAFETY MEASURES IN PLACE. CALL LIGHT IN REACH. WILL CONTINUE TO MONITOR. SLEPT 7 HOURS. FLUID INTAKE 1,000 ML . VOIDED X 3 . BM. LAST COWS 1 .
--- NOTE | 2017-08-22 07:30 | NUR ---
Start of shift note; Received report from night nurse. Patient is a 62 year old female admitted on 08/15/17 for Opiate dependence. Patient completed Subutex taper without any adverse reactions. Patient reported history of Anxiety, depression, type 2 diabetes, fibromyalgia, hypertension, sciatica. Patient slept for 7 hours. Patient's last COWS is 1 at 0400 per endorsement. Patient is on fall and seizure precaution. Bed in lowest position, call light within reach. All safety measures secured. Will continue to monitor patient. Addendum: 08/22/17 at 1041 by AKILA LOREDO LVN Patient is medically cleared for discharge today.
[2017-08-22 08:00] VITALS: BP 130/62
[2017-08-22 12:00] VITALS: BP 138/67
--- NOTE | 2017-08-22 12:50 | NUR ---
Discharge note; Patient is AOX4. Patient completed treatment without any adverse reactions. Patient is medically cleared for discharge. All valuables, belongings, prescriptions given to patient. Patient left in a stable condition. Met all patient's needs.
== END 2017-08-22 12:50 | disposition home or self-care (01) | DRG 895 ==
LOC: SRC 14:46
PROVIDERS: ADMIT Internal Medicine; ATTEND Internal Medicine
PROC: HZ2ZZZZ Detoxification Services for Substance Abuse Treatment (ICD-10-PCS; principal; 2017-08-15)
PROC: HZ41ZZZ Group Counseling for Substance Abuse Treatment, Behavioral (ICD-10-PCS; 2017-08-20)
DX: F11.23 Opioid dependence with withdrawal (principal); E87.3 Alkalosis; F33.2 Major depressive disorder, recurrent severe without psychotic features; E11.65 Type 2 diabetes mellitus with hyperglycemia; D50.9 Iron deficiency anemia, unspecified; I10 Essential (primary) hypertension; F19.90 Other psychoactive substance use, unspecified, uncomplicated; N30.00 Acute cystitis without hematuria; G89.29 Other chronic pain; M06.9 Rheumatoid arthritis, unspecified; M79.7 Fibromyalgia; Z81.1 Family history of alcohol abuse and dependence; Z81.8 Family history of other mental and behavioral disorders; Z82.49 Family history of ischemic heart disease and other diseases of the circulatory system; K21.9 Gastro-esophageal reflux disease without esophagitis; E86.0 Dehydration; E83.42 Hypomagnesemia; Z88.8 Allergy status to other drugs, medicaments and biological substances; Z88.1 Allergy status to other antibiotic agents; Z91.041 Radiographic dye allergy status; Z79.4 Long term (current) use of insulin; M54.40 Lumbago with sciatica, unspecified side; R79.89 Other specified abnormal findings of blood chemistry
CPT/HCPCS: 36415; 70030-TC; 80307; 80345; 83550; 83735; 85025; 86592; 86705; 86803; 87340; 87806; A4663; G0480; J1815; J1885; J3490; Q0162